=== PATIENT | male | born 1980 | race Caucasian/White ===

== ENCOUNTER 2017-07-10 03:18 | Emergency (ER) | payer OTHER ==
[2017-07-10] MEDS: MORPHINE 10 MG/ML 1ML VIAL (J2270) IM (04:32)
== END 2017-07-10 05:29 | disposition home or self-care (01) ==
LOC: M ED 03:18
DX: S02.2XXA Fracture of nasal bones, initial encounter for closed fracture (principal); Y04.8XXA Assault by other bodily force, initial encounter; Y92.149 Unspecified place in prison as the place of occurrence of the external cause; Y93.9 Activity, unspecified; Y99.9 Unspecified external cause status; F17.200 Nicotine dependence, unspecified, uncomplicated; M47.812 Spondylosis without myelopathy or radiculopathy, cervical region; M50.323 Other cervical disc degeneration at C6-C7 level; Z88.0 Allergy status to penicillin
CPT/HCPCS: J2270